=== PATIENT | female | born 1990 | race Caucasian/White ===

== ENCOUNTER → 2018-07-03 | Outpatient (REF) | payer BC | LOC: M LAB REF 13:21 | PROVIDERS: ATTEND Advanced Practice Midwife | DX: Z12.4 Encounter for screening for malignant neoplasm of cervix (principal) ==

== ENCOUNTER → 2019-03-05 | Outpatient (CLI) | payer MEDICAID ==
[2019-03-05 19:59] LABS: BASO % 0.3 % (0.0-1.0); EOS # 0.1 10^3/uL (0.0-0.5); EOS % 1.2 % (0.0-3.0); HEMOGLOBIN 12.7 g/dl (12.0-15.5); LYMPH # 1.8 10^3/uL (1.5-5.0); MEAN CORPUSCULAR HGB CONC 31.8 g/dl (32.0-36.5); MEAN CORPUSCULAR VOLUME 94.6 fl (80.0-96.0); MONO # 0.9 10^3/uL (0.0-0.8); NEUTROPHILS % 51.3 % (36.0-66.0); PLATELET COUNT, AUTOMATED 186 10^3/uL (150-450); RED BLOOD COUNT 4.23 10^6/uL (4.00-5.40); WHITE BLOOD COUNT 5.9 10^3/uL (4.0-10.0)
[2019-03-06 11:26] LABS: HEPATITIS C VIRUS ABY INDEX < 0.0 INDEX (<0.8); HIV 1&2 SCREEN CENTAUR NEGATIVE (NEGATIVE); RUBELLA IgG QUALITATIVE IMMUNE (IMMUNE)
== END ==
LOC: M PLALAB 12:23
PROVIDERS: ATTEND Advanced Practice Midwife
DX: Z34.81 Encounter for supervision of other normal pregnancy, first trimester (principal); Z36.89 Encounter for other specified antenatal screening

== ENCOUNTER → 2019-04-08 | Outpatient (REF) | payer MEDICAID, OTHER ==
[2019-04-08 18:26] LABS: CHLAMYDIA DNA AMPLIFICATION NEGATIVE (NEGATIVE); GC DNA AMPLIFICATION NEGATIVE (NEGATIVE)
== END ==
LOC: M WHC 16:37
PROVIDERS: ATTEND Advanced Practice Midwife
DX: Z34.82 Encounter for supervision of other normal pregnancy, second trimester (principal); Z36.89 Encounter for other specified antenatal screening

== ENCOUNTER → 2019-05-27 | Outpatient (CLI) | payer MEDICAID, OTHER ==
--- NOTE | 2019-05-27 10:52 | REP ---
OB ULTRASOUND: Real-time sonographic evaluation of the gravid uterus performed. There is a single living intrauterine gestation. The estimated gestational age is 20 weeks 4 days based on today ultrasound measurements. EDC 10/10/2019. Biometry and Growth: BPD 49 mm = 20 weeks 6 days HC 182 mm = 20 weeks 4 days AC 155 mm = 20 weeks 5 days FL 34 mm = 20 weeks 6 days HC/AC ratio 1.17 within normal range of 1.06 to 1.24. Estimated weight 374 grams 55th percentile. SEEN/GROSSLY UNREMARKABLE Lateral ventricles Yes Posterior fossa Yes Upper lip Yes Four-chamber heart No LVOT Yes RVOT Yes Stomach Yes Cord insertion Yes Three vessel cord Yes Kidneys No Bladder Yes Spine Yes Cervical length: Closed and measures 3.3 cm in length. heart rate: 144 beats per minute. position: Oblique with the head toward the maternal right side. Placenta: Anterior and grade 0 with no previa or abruption. Amniotic fluid: Within normal limits.
== END ==
LOC: M WHC 08:52
PROVIDERS: ATTEND Advanced Practice Midwife
DX: Z34.82 Encounter for supervision of other normal pregnancy, second trimester (principal); Z3A.20 20 weeks gestation of pregnancy

== ENCOUNTER → 2019-06-19 | Outpatient (CLI) | payer OTHER ==
--- NOTE | 2019-06-20 04:45 | REP ---
Clinical: Anatomical evaluation. Comparison: 05/27/2019 . Findings: Examination demonstrates a single live intrauterine in cephalic presentation. motion is identified by technologist. Placenta is noted anterior and grade i without evidence for placenta previa or abruption. Amniotic fluid volume is normal. Cervix measures 3.9 cm in length and appears closed. No evidence for nuchal cord. Gestational age by LMP 23 weeks 6 days with ANGEL 10/10/2019 . Gestational age by current measurements 23 weeks 6 days with ANGEL 10/10/2019 . FHR equals 140 beats per minute. Estimated weight 677 grams ( 58th percentile). Anatomical assessment demonstrates normal structures including cranium, cerebellum/posterior fossa, facial features, lungs, four-chamber heart/ventricular outflow tracts, diaphragm, stomach, cord insertion/three-vessel cord, kidneys/bladder, and spine. Impression: single live intrauterine in cephalic presentation demonstrating appropriate interval growth. In conjunction with prior examination anatomical assessment is complete and normal.
== END ==
LOC: M WHC 09:00
PROVIDERS: ATTEND Advanced Practice Midwife
DX: Z34.82 Encounter for supervision of other normal pregnancy, second trimester (principal); Z36.2 Encounter for other antenatal screening follow-up; Z3A.23 23 weeks gestation of pregnancy

== ENCOUNTER → 2019-07-02 | Outpatient (REF) | payer OTHER ==
[~2019-07-02] MED LIST: BUSP5TA PO; VALT500T PO; ZOLO25TA PO
[2019-07-02 12:41] LABS: HEMATOCRIT 34.9 % (36.0-47.0); HEMOGLOBIN 11.4 g/dl (12.0-15.5); MEAN CORPUSCULAR HEMOGLOBIN 30.8 pg (27.0-33.0); MEAN CORPUSCULAR HGB CONC 32.7 g/dl (32.0-36.5); MEAN CORPUSCULAR VOLUME 94.3 fl (80.0-96.0); PLATELET COUNT, AUTOMATED 197 10^3/uL (150-450); WHITE BLOOD COUNT 9.6 10^3/uL (4.0-10.0)
== END ==
LOC: M PLALAB 09:30
PROVIDERS: ATTEND Advanced Practice Midwife
DX: Z36.89 Encounter for other specified antenatal screening (principal)

== ENCOUNTER → 2019-09-10 | Outpatient (REF) | payer OTHER | LOC: M SFHCWAGY 16:45 | PROVIDERS: ATTEND Advanced Practice Midwife | DX: Z34.83 Encounter for supervision of other normal pregnancy, third trimester (principal) ==

== ENCOUNTER → 2019-10-08 | Outpatient (REF) | payer OTHER | LOC: M SFHCWAGY 11:46 | PROVIDERS: ATTEND Advanced Practice Midwife | DX: Z34.83 Encounter for supervision of other normal pregnancy, third trimester (principal); Z3A.00 Weeks of gestation of pregnancy not specified ==

== ENCOUNTER 2019-10-11 01:02 | Inpatient (IN) | payer OTHER ==
[2019-10-11] VITALS (38 sets, daily range): BP systolic 94–136; BP diastolic 52–78
[~2019-10-11] VITALS: Ht 180.3 cm; Wt 110.7 kg
[2019-10-11] MEDS ORDERED: PENICILLIN G POTASSIUM IV 5 MU in D5W MINI-BAG PLUS 100 ML IV STA (01:35)
[2019-10-11] MEDS ORDERED: LACTATED RINGER'S 1000 ML IV STA (01:35)
--- NOTE | 2019-10-11 01:43 | HPEPDOC ---
Obstetrical History & Physical General Date of Admission Oct 11, 2019 at 01:02 Primary Care Physician: PRISCILLA SAMPSON CNM History of Present Illness Patient is a 29-year-old female who is a at 40.3 weeks with an ANGEL of 10/08/19. No records are available to review beyond lab results. She reports she initiated care in her first trimester with [facility]. 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 She reports to L&D with complaints of SROM to a large amount of clear fluid at 2345 on 10/10/19. She reports contractions and active movement. She denies vaginal bleeding. Chief Complaint: Rupture of membranes (11:45 on 10/10/19) Information Provided By: Patient Age: 29 : 1 Term: 0 Pre-term: 0 Abortions: 0 Livin Care Care: Good Care Dating Final EDC: Oct 08, 2019 EGA at Admission: 40.3 Antepartum Course Height (inches): 71 Admission Weight (lbs.): 243 Past Medical History Past Obstetrical History : Past Obstetrical History: [employer] History: Herpes simplex virus(HSV) (HSV II taking prophylactic treatment) Past Medical History Medical History HSV II Surgical History: Other (oral surgery x3) Family History Significant Family History: No pertinent family hx Social History Marital Status: Family situation: Spouse/partner home Psychosocial History: No pertinent psych hx * Smoker: non-smoker Alcohol: Denies Drugs: denies Abuse Violence Screening Have you been hit/kicked/slapp: No Have you been sexually assault: No Allergies Coded Allergies: No Known Allergies (Unverified , 10/11/19) Medications Scheduled Valacyclovir HCl (Valtrex) 500 Mg Tablet, 500 MG PO BID Physical Examination Physical Examination GENERAL: Alert and oriented times three. BREAST: . ABDOMEN: Gravid and non-tender to touch. FETUS: Is vertex (VTX) by sterile vaginal examination (SVE), fetus is vertex (VTX) by Mitch. HEART RATE: Regular rate and rhythm. LUNGS: Clear to auscultation (CTA). EXTREMITIES: No edema. No clonus. Deep tendon reflexes (DTRs) + 2. Perineum: no lesion noted. + Nitrazine. +pooling of fluid Laboratory Data 24H LABS Laboratory Tests 2 10/11/19 01:08: Serology Scanned Report Hepatitis B Testing Urine Culture: No Growth Pertinent Laboratoy Data Blood Type: O+ RBC Antibody Screen: Negative HIV: Negative Hepatitis B: Negative Hepatitis C: Negative Rapid Plasma Reagin: Nonreactive Rubella: Immune Chlamydia/Gonorrhea: Negative Group B Streptococcus: Unknown Vaginal Examination Dilation: 1cm Effacement: 100% Station: -2 Cervical Position: Anterior Presentation: Cephalic presentation Position: Vertex (occiput) Assessment Heart Rate (FHR): 125 Variability: Moderate Accelerations: Positive Decelerations: None Tocometer Contractions: Yes Frequency: every 2-5 min. Multi-drug resistant Organism: No history of MDRO Assessment/Plan Assessment IUP at 40+ weeks gestation SROM GBS unknown Category I FHR tracing Plan Admit to labor and delivery. Counseled potential for augmentation of labor using IV Pitocin. Diet: regular. Group B Streptococcus (GBS) unknown. Antibiotics ordered prophylactically. Labs and intravenous (IV) per unit protocol. Anesthesia consult per patient's request. Lactated Ringers (LR): Bolus 800 mL prior to epidural, then at 125 mL/hr. Anticipate cervical change. C-S as appropriate. PRISCILLA SAMPSON CNM Oct 11, 2019 01:43
[2019-10-11 01:52] LABS: HEMATOCRIT 37.8 % (36.0-47.0); HEMOGLOBIN 12.4 g/dl (12.0-15.5); MEAN CORPUSCULAR HEMOGLOBIN 28.6 pg (27.0-33.0); MEAN CORPUSCULAR HGB CONC 32.8 g/dl (32.0-36.5); MEAN CORPUSCULAR VOLUME 87.3 fl (80.0-96.0); PLATELET COUNT, AUTOMATED 251 10^3/uL (150-450); RED BLOOD COUNT 4.33 10^6/uL (4.00-5.40); WHITE BLOOD COUNT 14.8 10^3/uL (4.0-10.0)
[2019-10-11] MEDS ORDERED: VALT500T PO (02:50)
[2019-10-11] MEDS ORDERED: FENTANYL 2MCG/ML ROPIVACAINE 0.2% IN 0.9% NACL 100ML IVBAG As Ordered ONE (05:13)
[2019-10-11] MEDS ORDERED: BUTORPHANOL 2 MG/ML INJ (J0595) IV ONE (05:15)
[2019-10-11] MEDS ORDERED: PROMETHAZINE INJ 25 MG/ML VIAL (J2550) IV ONE (05:15)
[2019-10-11] MEDS: PENICILLIN G POTASSIUM IV 2.5 MU in IV 1 EA IV SCH ×4 (05:54→18:12)
[2019-10-11] MEDS ORDERED: LR 300 ML IV ONE (06:00)
[2019-10-11] MEDS ORDERED: LR 1,000 ML IV SCH (08:16)
--- NOTE | 2019-10-11 08:19 | IPNPDOC ---
Text Note Date of Service The patient was seen on 10/11/19. NOTE Progress Groggy with stadol. Rare, irregular UC FH Cat I, 135, moderate variability SVE unchanged 1-2/100/-1. Will start pitocin at this time. Pt desires epidural when able VS,Fishbone, I+O VS, Fishbone, I+O Laboratory Tests 10/11/19 01:40 Vital Signs Date Time Temp Pulse Resp B/P (MAP) Pulse Ox O2 Delivery O2 Flow Rate FiO2 10/11/19 08:00 77 18 134/78 (96) Uzma Zhong CNM Oct 11, 2019 08:18
[2019-10-11] MEDS ORDERED: OXYTOCIN DRIP 30 UNITS in IV 1 EA IV SCH (08:30)
[2019-10-11] MEDS: LR 1,000 ML IV SCH ×2 (09:51→14:30)
[2019-10-11] MEDS: FENTANYL/ROPIVACAINE/NACL BAG 100 ML EPIDURAL SCH ×2 (13:06→20:27)
[2019-10-11] MEDS ORDERED: LACTATED RINGER'S 1000 ML IV PRN (13:45)
[2019-10-11] MEDS ORDERED: REFRIGERATOR IV KEYS XX PRN (13:45)
[2019-10-11] MEDS ORDERED: diphenhydrAMINE 50MG/ML VIAL (J1200) IV PRN (13:45)
[2019-10-11] MEDS ORDERED: ePHEDrine SULFATE 25 MG/5 ML(5MG/ML) SYRINGE IV PRN (13:45)
[2019-10-11] MEDS ORDERED: EPIDURAL/PCA KEYS XX PRN (13:45)
[2019-10-11] MEDS ORDERED: NALOXONE INJ 0.4MG/1ML VIAL (J2310 PER 1MG) IV PRN (13:45)
[2019-10-11] MEDS ORDERED: ONDANSETRON 4MG/2ML VIAL IV PRN (13:45)
[2019-10-11] MEDS ORDERED: EPIDURAL COMMENT XX SCH (13:45)
--- NOTE | 2019-10-11 20:01 | IPNPDOC ---
Text Note Date of Service The patient was seen on 10/11/19. NOTE Progress Comfortable with epidural Afebrile Pitocin @ 14mu UC 2-3 minutes x 45-60sec FH 145, Cat I SVE /0, + show Continue induction. Anticipate NSVB VS,Fishbone, I+O VS, Fishbone, I+O Laboratory Tests 10/11/19 01:40 Vital Signs Date Time Temp Pulse Resp B/P (MAP) Pulse Ox O2 Delivery O2 Flow Rate FiO2 10/11/19 19:07 121 134/70 (91) 10/11/19 14:06 97.8 10/11/19 11:56 20 Uzma Zhong CNM Oct 11, 2019 20:01
[2019-10-12] VITALS (10 sets, daily range): BP systolic 110–134; BP diastolic 58–72
[2019-10-12 01:45] LABS: CORD GAS PH A 7.335 UNITS; CORD GAS PO2 A 46.5 mmHg; CORD GAS TCO2 A 17.7 MEQ/L
[2019-10-12 01:46] LABS: CORD GAS ABE A -7.9; CORD GAS HCO3 A 16.7 MEQ/L; CORD GAS SBC A 18.1 MEQ/L
[2019-10-12 01:50] LABS: CORD GAS ABE V -7.6; CORD GAS HCO3 V 16.4 MEQ/L; CORD GAS O2 SAT V 94.1 %; CORD GAS PCO2 V 30.2 mmHg; CORD GAS PH V 7.354 UNITS; CORD GAS PO2 V 55.8 mmHg; CORD GAS SBC V 18.3 MEQ/L; CORD GAS TCO2 V 17.4 MEQ/L
[2019-10-12] MEDS ORDERED: ANUSOL HC CREAM 30GM TOP PRN (02:15)
[2019-10-12] MEDS ORDERED: ACETAMINOPHEN TAB 650MG DOSE (2X325MG) PO PRN (02:15)
[2019-10-12] MEDS ORDERED: IBUPROFEN 600MG TAB PO PRN (02:15)
[2019-10-12] MEDS ORDERED: MOM 30ML SUSPENSION UDC PO PRN (02:15)
[2019-10-12] MEDS ORDERED: METHYLERGONOVINE MALEATE 0.2 MG TAB PO SCH (02:15)
[2019-10-12] MEDS ORDERED: DOCUSATE SODIUM 100 MG CAP PO PRN (02:15)
[2019-10-12] MEDS ORDERED: DIBUCAINE 1% OINTMENT 30GM TOP PRN (02:15)
[2019-10-12] MEDS ORDERED: MEASLES,MUMPS,RUBELLA VACCINE INJ (MMR-II) (90707) SC SCH (02:15)
[2019-10-12] MEDS ORDERED: LIDOCAINE 1% MDV 20ML VIAL INFIL ONE (02:15)
[2019-10-12] MEDS ORDERED: RHOGAM 300 MCG (1500 IU) INJ (J2790) IM SCH (02:15)
[2019-10-12] MEDS: METHYLERGONOVINE MALEATE 0.2 MG TAB PO SCH ×4 (02:50→20:07)
--- NOTE | 2019-10-12 02:57 | DNPDOC ---
[facility] Delivery Note Delivery Note DATE OF DELIVERY: 10/12/2019 PREDELIVERY DIAGNOSIS: 40+4/7 weeks' gestation and labor. POST DELIVERY DIAGNOSIS: Delivered. PROCEDURE: Spontaneous vaginal delivery. PROVIDER: Uzma Zhong CNM ANESTHESIA: Epidural. ESTIMATED BLOOD LOSS: 500 mL. FINDINGS: Female infant, weight and score pending, no nuchal cord. DELIVERY SUMMARY: Patient is a 29-year-old 1 now para 1-0-0-1 who was admitted to labor and delivery for premature rupture of membranes 10/10/2019 2345, clear fluid. Pitocin augmentation provided and labor did progress. She was treated for GBS unknown, and utilized an epidural for labor coping. Fully dilated 2330 10/11/2019. Viable female delivered FIORDALIZA 0131. Thick meconium noted with delivery of head. Initial gasping efforts, cord doubly clamped and cut. to warmer for resuscitation and support. Cord gases obtained - arterial 7.335, BE -7.9 and venous 7.354, BE -7.6. transferred to NICU. Placenta matthews, intact with 3v cord 0142. Fundus firmed with massage and IV pitocin bolus. EBL 500ml. Perineum intact. Bilateral periurethral abrasions infiltrated with lidocaine and reapproximated with 1 stitch each of 4-0 vicryl rapide. weight and apgars pending. Sponge, sharp and instrument count correct. Uzma Zhong CNM Oct 12, 2019 02:26
[2019-10-12] MEDS: IBUPROFEN 800 MG TAB PO PRN ×2 (03:05→15:33)
[2019-10-12] MEDS: ACETAMINOPHEN 500 MG TAB PO PRN ×3 (03:05→20:07)
[2019-10-12] MEDS ORDERED: busPIRone 5 MG TAB PO PRN (08:00)
--- NOTE | 2019-10-12 08:00 | IPNPDOC ---
Text Note Date of Service The patient was seen on 10/12/19. NOTE Weepy. Voicing appropriate concerns for infant. Voiding. Adequate pain management VSS, afebrile, normotensive Breasts soft, plans to start pumping Fundus firm, NT, down 1 FB Lochia rubra light without odor Perineum intact PP #1, infant at [place] for meconium aspiration Offered discharge today. Pt states at present her partner will be going to [place] and she will stay here. May reconsider and desire discharge later today. Pt reports "never being diagnosed with depression" Offered antidepressant, pt agrees. Routine supportive care today. VS,Fishbone, I+O VS, Fishbone, I+O Vital Signs Date Time Temp Pulse Resp B/P (MAP) Pulse Ox O2 Delivery O2 Flow Rate FiO2 10/12/19 05:02 98.8 81 18 123/58 (79) I&O- Last 24 Hours up to 6 AM 10/12/19 06:00 Intake Total 3010 ml Output Total 3425 ml Balance -415 ml Uzma Zhong CNM Oct 12, 2019 08:00
[2019-10-12] MEDS ORDERED: BUSP5TA PO (08:05)
[2019-10-12] MEDS ORDERED: ZOLO25TA PO (08:05)
[2019-10-12] MEDS ORDERED: SERTRALINE HCL 25 MG TABLET PO SCH (09:00)
[2019-10-12] MEDS ORDERED: PRENATAL VITAMINS CHEWABLE TABLET PO SCH (09:00)
[2019-10-13] MEDS ORDERED: METHYLERGONOVINE MALEATE 0.2 MG TAB PO PRN (03:00)
== END 2019-10-12 21:20 | disposition home or self-care (01) | DRG 560 ==
LOC: M LDI 01:02 → M OBS 10-12 04:40
PROVIDERS: ADMIT Advanced Practice Midwife; ATTEND Advanced Practice Midwife
PROC: 10E0XZZ Delivery of Products of Conception, External Approach (ICD-10-PCS; principal; 2019-10-12)
DX: O42.02 Full-term premature rupture of membranes, onset of labor within 24 hours of rupture (principal); O98.32 Other infections with a predominantly sexual mode of transmission complicating childbirth; A60.09 Herpesviral infection of other urogenital tract; Z3A.40 40 weeks gestation of pregnancy; O48.0 Post-term pregnancy; O99.820 Streptococcus B carrier state complicating pregnancy; O77.0 Labor and delivery complicated by meconium in amniotic fluid; Z37.0 Single live birth

== ENCOUNTER → 2020-07-08 | Outpatient (REF) | payer OTHER | LOC: M SFHCWAGY 16:51 | PROVIDERS: ATTEND Advanced Practice Midwife | DX: Z12.4 Encounter for screening for malignant neoplasm of cervix (principal) ==

== ENCOUNTER → 2021-04-30 | Outpatient (CLI) | payer OTHER ==
[2021-04-30 11:27] LABS: BASO % 0.6 % (0.0-1.0); EOS # 0.1 10^3/uL (0.0-0.5); EOS % 0.8 % (0.0-3.0); HEMATOCRIT 38.1 % (36.0-47.0); HEMOGLOBIN 12.4 g/dl (12.0-15.5); LYMPH # 2.7 10^3/uL (1.5-5.0); LYMPH % 42.9 % (24.0-44.0); MEAN CORPUSCULAR HEMOGLOBIN 29.7 pg (27.0-33.0); MEAN CORPUSCULAR HGB CONC 32.5 g/dl (32.0-36.5); MEAN CORPUSCULAR VOLUME 91.4 fl (80.0-96.0); MONO # 0.6 10^3/uL (0.0-0.8); MONO % 9.5 % (2.0-8.0); NEUTROPHILS # 2.9 10^3/uL (1.5-8.5); NEUTROPHILS % 45.9 % (36.0-66.0); PLATELET COUNT, AUTOMATED 206 10^3/uL (150-450); RED BLOOD COUNT 4.17 10^6/uL (4.00-5.40); WHITE BLOOD COUNT 6.3 10^3/uL (4.0-10.0)
[2021-04-30 12:00] LABS: ALBUMIN 3.6 GM/DL (3.2-5.2); ALT/SGPT 38 U/L (12-78); BILIRUBIN,TOTAL 0.5 MG/DL (0.2-1.0); BLOOD UREA NITROGEN 13 MG/DL (7-18); CARBON DIOXIDE LEVEL 27 MEQ/L (21-32); CHLORIDE LEVEL 107 MEQ/L (98-107); CREATININE FOR GFR 1.08 MG/DL (0.55-1.30); GLOMERULAR FILTRATION RATE > 60.0 (>60); GLUCOSE, FASTING 93 MG/DL (70-100); SODIUM LEVEL 139 MEQ/L (136-145); TOTAL PROTEIN 6.9 GM/DL (6.4-8.2)
== END ==
LOC: M PLALAB 07:21
PROVIDERS: ATTEND Student in an Organized Health Care Education/Training Program
DX: Z00.00 Encounter for general adult medical examination without abnormal findings (principal)

== ENCOUNTER → 2021-09-06 | Outpatient (REF) | payer OTHER | LOC: M SFHCPLAZ 12:43 | PROVIDERS: ATTEND Physician Assistant | DX: Z11.52 Encounter for screening for COVID-19 (principal); R05.1 Acute cough ==

== ENCOUNTER → 2023-01-06 | Outpatient (REF) | payer OTHER | LOC: M PLALAB 13:47 | PROVIDERS: ATTEND Nurse Practitioner Family | DX: Z12.4 Encounter for screening for malignant neoplasm of cervix (principal) ==

== ENCOUNTER → 2024-06-04 | Outpatient (CLI) | payer OTHER ==
[2024-06-04 15:36] LABS: FREE T3 3.7 PG/ML (2.3-4.2); FREE T4 1.3 NG/DL (0.89-1.76)
[2024-06-06 13:02] LABS: HPV APTIMA Not Detected (Not Detected)
== END ==
LOC: M PLALAB 12:26
PROVIDERS: ATTEND Nurse Practitioner Family
DX: E04.9 Nontoxic goiter, unspecified (principal); Z12.4 Encounter for screening for malignant neoplasm of cervix; Z11.51 Encounter for screening for human papillomavirus (HPV)
CPT/HCPCS: 36415; 84439; 84481; 86376; 87624; G0123

== ENCOUNTER → 2024-06-24 | Outpatient (CLI) | payer OTHER | LOC: M RAD 10:59 | PROVIDERS: ATTEND Nurse Practitioner Family | DX: E04.2 Nontoxic multinodular goiter (principal) ==

== ENCOUNTER → 2025-01-13 | Outpatient (CLI) | payer OTHER | LOC: M WUC 10:01 | PROVIDERS: ATTEND Student in an Organized Health Care Education/Training Program | DX: M25.561 Pain in right knee (principal) ==

== ENCOUNTER → 2025-01-26 | Outpatient (REF) | payer OTHER | LOC: M LAB REF 15:05 | PROVIDERS: ATTEND Physician Assistant | DX: R30.0 Dysuria (principal) ==